=== PATIENT | male | born 1975 | race Caucasian/White ===

== ENCOUNTER 2021-04-28 10:00 | Inpatient (IN) | payer SELFPAY ==
[~2021-04-28] VITALS: Ht 177.8 cm; Wt 73.9 kg
[2021-04-28] MEDS ORDERED: IV NORMAL SALINE 1000ML BAG 1,000 ML IV ONE (10:30)
[2021-04-28] MEDS ORDERED: HYDROmorphone 2 MG/ML VIAL IVP ONE (10:30)
[2021-04-28 10:41] LABS: BASO # 0.1 x10^3/uL (0.0-0.2); BASO % 0 % (0-3); EOS # 0.1 x10^3/uL (0.0-0.7); EOS % 0 % (0-3); HEMATOCRIT 46.8 % (39.0-53.0); LYMPH # 2.3 x10^3/uL (1.0-4.8); LYMPH % 12 % (24-48); MEAN CORPUSCULAR HEMOGLOBIN 30 pg (25-35); MEAN CORPUSCULAR HGB CONC 34 g/dL (31-37); MEAN CORPUSCULAR VOLUME 87 fL (79-100); MONO # 0.9 x10^3/uL (0.0-1.1); MONO % 5 % (0-9); NEUT # 15.2 x10^3/uL (1.8-7.7); NEUT % 82 % (31-73); PLATELET COUNT 357 x10^3/uL (140-400); RED BLOOD COUNT 5.39 x10^6/uL (4.30-5.70); RED CELL DISTRIBUTION WIDTH 13.1 % (11.5-14.5); WHITE BLOOD COUNT 18.5 x10^3/uL (4.0-11.0)
--- NOTE | 2021-04-28 10:41 | PHYS DOC ---
Past Medical History Past Medical History: Asthma Past Surgical History: No Surgical History Alcohol Use: None Drug Use: None General Adult EDM: Chief Complaint: ANIMAL BITE HPI: HPI: 45-year-old male presenting after having a snakebite last night at midnight. After the bite he called EMS who gave him morphine and brought him into [facility]. He then was discharged. Since then his worsening pain and swelling of the foot. He denies any erythema. He has no information about the identity of the snake. He is not sure the shape or size of the head of the snake. He said it was a medium sized snake but is unsure how long it was. He is unsure what color was. It was in the middle the night at [facility]. His pain is moderate to severe. He has had associated swelling. He denies numbness weakness or tingling of the extremity. His pain is in the foot and in the calf. Review of systems negative for chest pain shortness of breath abdominal pain vomiting diaphoresis fevers or chills. All other review of systems negative. Heart Score: C/O Chest Pain: No Risk Factors: Risk Factors: DM, Current or recent (<one month) smoker, HTN, HLP, family history of CAD, obesity. Risk Scores: Score 0 - 3: 2.5% MACE over next 6 weeks - Discharge Home Score 4 - 6: 20.3% MACE over next 6 weeks - Admit for Clinical Observation Score 7 - 10: 72.7% MACE over next 6 weeks - Early Invasive Strategies Physical Exam: PE: Constitutional: Well developed, well nourished, patient is anxious appearing but not in distress. HENT: Normocephalic, atraumatic, bilateral external ears normal, oropharynx moist, no oral exudates, nose normal. [] Eyes: PERRLA, EOMI, conjunctiva normal, no discharge. [] Neck: Normal range of motion, no tenderness, supple, no stridor. [] Cardiovascular:Heart rate regular rhythm, no murmur [] Lungs & Thorax: Bilateral breath sounds clear to auscultation [] Abdomen: Bowel sounds normal, soft, no tenderness, no masses, no pulsatile masses. [] Skin: Warm, dry, no erythema, no rash. [] Back: No tenderness, no CVA tenderness. [] Extremities: The patient's right lower extremity has 2 small punctate wounds on the dorsum of the foot which are approximately 3 to 4 cm apart. The foot is swollen. There is a palpable pulse with 2-second cap refill. Normal motor function of the foot. Motor normal sensory function of the foot. He has tenderness in the foot and the calf. No crepitus to palpation of the foot. In particular no crepitus to palpation in the intertriginous web between the first and second phalanx. No crepitus in the calf ankle or foot. There is no erythema bullae or discoloration of the extremity. No ecchymosis petechiae or bleeding. Neurologic: Alert and oriented X 3, normal motor function, normal sensory function, no focal deficits noted. [] Psychologic: Affect normal, judgement normal, mood normal. [] EKG: EKG: [] Radiology/Procedures: Radiology/Procedures: [] Course & Med Decision Making: Course & Med Decision Making Pertinent Labs and Imaging studies reviewed. (See chart for details) [] 45-year-old male with a snakebite. Poison control called almost immediately on arrival. They faxed us their protocol. We measured the patient's extremity which was measured every 15 minutes for an hour which remained without any changes. Patient's pain was controlled with Dilaudid. IV fluids given. White blood cell count is elevated. Will give antibiotics. x-rays unremarkable. Given significant amount of swelling and pain will admit the patient for pain control and to monitor for development of compartment syndrome. Currently the patient is feeling better after the medications. On first examination and second examination the compartments of the lower extremity are soft. Neurovascularly intact on first and second examination. Second examination around 11:30 AM. I spoke with Dr. Reeder who accepts patient for admission to the hospital. I placed an orthopedic surgery consult to rule out compartment syndrome as related to the patient's significant pain. Saima Disclaimer: Saima Disclaimer: This electronic medical record was generated, in whole or in part, using a voice recognition dictation system. Departure Departure Impression: Primary Impression: Snake bite Additional Impressions: Snake bite poisoning Leg pain Disposition: ADMITTED INPATIENT [facility] Condition: STABLE JORDAN SALMERON MD Apr 28, 2021 10:41
[2021-04-28 10:42] LABS: CALCIUM 8.7 mg/dL (8.5-10.1); CREATININE 0.9 mg/dL (0.7-1.3); GFR 92.1; POTASSIUM 3.9 mmol/L (3.5-5.1)
[2021-04-28 10:45] LABS: ALBUMIN 4.2 g/dL (3.4-5.0); ALBUMIN/GLOBULIN RATIO 1.3 (1.0-1.7); TOTAL BILIRUBIN 0.5 mg/dL (0.2-1.0); TOTAL PROTEIN 7.4 g/dL (6.4-8.2)
[2021-04-28 10:47] LABS: PROTHROMBIN TIME PATIENT 12.9 SEC (11.7-14.0)
--- NOTE | 2021-04-28 11:00 | RAD ---
Right ankle 3 views, right tibia and fibula 2 views. HISTORY: Right ankle and leg pain, snakebite Right ankle 3 views were taken of of the right ankle. There is soft tissue swelling. There is no acute fracture o r osseous abnormality. Right tibia and fibula AP and lateral views were taken of the right tibia and fibula. There is soft tissue swelling of the r ight lower extremity. There is no fracture or osseous abnormality. There is no opaque foreign body. IMPRESSION: 1. Soft tissue swelling right ankle and calf. 2. No osseous abnormality in the right tibia or fibula. 3. No acute osseous abnormality at the right ankle. Electronically signed by: Jan Alegre MD (04/28/2021 10:58 AM) [id number]
--- NOTE | 2021-04-28 11:11 | RAD ---
EXAM: Right foot 3 views. HISTORY: Neck bite, swelling. COMPARISON: None. FINDINGS: Three views of the right foot are obtained. Foci of low attenuation and along the base of t he first toe are most likely fat density. No clear soft tissue gas is appreciable. There is soft tiss ue swelling along the dorsum of the forefoot. There is no fracture or radiopaque foreign body. Alignment is normal. Joint spaces are maintained. Th ere is a small plantar calcaneal spur. IMPRESSION: 1. Soft tissue swelling. No fracture or radiopaque foreign body. Electronically signed by: Ryan Murillo MD (04/28/2021 11:09 AM) [id number]
[2021-04-28] MEDS ORDERED: VANCOMYCIN 1 GM in IV NORMAL SALINE 500ML BAG 500 ML IV ONE (11:30)
[2021-04-28] MEDS ORDERED: DIPH,PERTUSS(ACELL),TET VAC/PF 0.5 ML SYRINGE. VAX IM ONE (11:45)
[2021-04-28] MEDS ORDERED: PIPERACILLIN/TAZOBACTAM 4.5 GM in IV NORMAL SALINE 100ML 100 ML IV ONE (12:00)
[2021-04-28] MEDS ORDERED: VANCOMYCIN 1.75 GM in IV NORMAL SALINE 500ML BAG 500 ML IV ONE (12:30)
[2021-04-28 12:57] LABS: HEMATOCRIT 43.5 % (39.0-53.0); HEMOGLOBIN 15.1 g/dL (13.0-17.5); RED BLOOD COUNT 5.04 x10^6/uL (4.30-5.70); RED CELL DISTRIBUTION WIDTH 12.8 % (11.5-14.5); WHITE BLOOD COUNT 17.1 x10^3/uL (4.0-11.0)
[2021-04-28 13:06] LABS: PROTHROMBIN TIME PATIENT 13.5 SEC (11.7-14.0)
[2021-04-28 13:16] VITALS: BP 112/77
[2021-04-28] MEDS ORDERED: ENOXAPARIN 40 MG/0.4 ML SYRINGE. SQ SCH (14:00)
[2021-04-28] MEDS ORDERED: KETOROLAC 30 MG/ML VIAL. IVP PRN (14:00)
[2021-04-28] MEDS ORDERED: ACETAMINOPHEN 325 MG TABLET. PO PRN (14:00)
[2021-04-28] MEDS ORDERED: clonazePAM 0.5 MG TABLET PO PRN (14:00)
[2021-04-28] MEDS ORDERED: PIPERACILLIN/TAZOBACTAM 3.375 GM in IV NORMAL SALINE 50ML 50 ML IV SCH (14:30)
--- NOTE | 2021-04-28 14:30 | PDOC1 ---
History and Physical Date of Admission Date of Admission DATE: 04/28/21 TIME: 14:02 Identification/Chief Complaint Chief Complaint Right foot pain Source Source: Chart review, Patient History of Present Illness History of Present Illness Mr Hilliard 45 yo M with no significant past medical history presenting after having a snakebite or puncture wound in his right foot on 04/27/2020 in the evening. Around 2300 contacted EMS, was given morphine in transit and brought to [facility] and states he was discharged around 0300 on antibiotics. He was not given antivenom. Since then his worsening pain and swelling of the foot. He denies any erythema. He has no information about the identity of the snake or even if it was a snake. He lives in a van by [facility] and knows that her snakes there. Pain is 10/10, and he is skeptical about pain medication. He notes he has had swelling since this occurred. He denies numbness weakness or tingling of the extremity. He notes 2 puncture wounds there approximately 8 to 9 cm apart on the medial aspect of the arch of his foot. No fevers or chills. PT 12.9, INR 1, PTT 30, fibrinogen 342, metabolic panel within normal limits WBC 18.5, Hb 16, platelets 357. Admitted for Further care Past Medical History Cardiovascular: No pertinent hx Past Surgical History Past Surgical History: No pertinent history Family History Family History: Depression Social History Smoke: 2 packs per day ALCOHOL: rare Drugs: None Current Problem List Problem List Problems Medical Problems: (1) Leg pain Status: Acute (2) Snake bite Status: Acute (3) Snake bite poisoning Status: Acute Current Medications Current Medications Current Medications Hydromorphone HCl (Dilaudid) 0.5 mg 1X ONCE IVP ; Start 04/28/21 at 10:30; Stop 04/28/21 at 10:50; Status DC Sodium Chloride 1,000 ml @ 1,000 mls/hr 1X ONCE IV Last administered on 04/28/21at 10:30; Start 04/28/21 at 10:30; Stop 04/28/21 at 11:29; Status DC Vancomycin HCl 1 gm/Sodium Chloride 500 ml @ 250 mls/hr 1X ONCE IV ; Start 04/28/21 at 11:30; Stop 04/28/21 at 11:24; Status DC Piperacillin Sod/ Tazobactam Sod 4.5 gm/Sodium Chloride 100 ml @ 200 mls/hr 1X ONCE IV Last administered on 04/28/21at 11:44; Start 04/28/21 at 12:00; Stop 04/28/21 at 12:29; Status DC Vancomycin HCl 1.75 gm/Sodium Chloride 500 ml @ 250 mls/hr 1X ONCE IV Last administered on 04/28/21at 12:19; Start 04/28/21 at 12:30; Stop 04/28/21 at 14:29 Diphtheria/ Tetanus/Acell Pertussis (ADACEL TDap SYRINGE) 0.5 ml ONCE ONCE VAX IM Last administered on 04/28/21at 12:06; Start 04/28/21 at 11:45; Stop 04/28/21 at 11:46; Status DC Active Scripts Active Reported No Known Medications Prior To Admisstion (Info) Each 1 Each 1X Allergies Allergies: Coded Allergies: No Known Drug Allergies (Unverified , 04/28/21) ROS General: YES: Fatigue, Malaise; No: Chills, Night Sweats, Appetite, Other PSYCHOLOGICAL ROS: YES: Anxiety; No: Behavioral Disorder, Concentration difficultie, Decreased libido, Depression, Disorientation, Hallucinations, Hostility, Irritablity, Memory difficulties, Mood Swings, Obsessive thoughts, Physical abuse, Sexual abuse, Sleep disturbances, Suicidal ideation, Other Eyes: No Blurry vision, No Decreased vision, No Double vision, No Dry eyes, No Excessive tearing, No Eye Pain, No Itchy Eyes, No Loss of vision, No P hotophobia, No Scotomata, No Uses contacts, No Uses glasses, No Other HEENT: No: Heacaches, Visual Changes, Hearing change, Nasal congestion, Nasal discharge, Oral lesions, Sinus pain, Sore Throat, Epistaxis, Sneezing, Snoring, Tinnitus, Vertigo, Vocal changes, Other ALLERGY AND IMMUNOLOGY: No: Hives, Insect Bite Sensitivity, Itchy/Watery Eyes, Nasal Congestion, Post Nasal Drip, Seasonal Allergies, Other Hematological and Lymphatic: No: Bleeding Problems, Blood Clots, Blood Transfusions, Brusing, Night Sweats, Pallor, Swollen Lymph Nodes, Other ENDOCRINE: No: Breast Changes, Galactorrhea, Hair Pattern Changes, Hot Flashes, Malaise/lethargy, Mood Swings, Palpitations, Polydipsia/polyuria, Skin Changes, Temperature Intolerance, Unexpected Weight Changes, Other Breast: No New/Changing Breast Lumps, No Nipple changes, No Nipple discharge, No Other Respiratory: No: Cough, Hemoptysis, Orthopnea, Pleuritic Pain, Shortness of breath, SOB with excertion, Sputum Changes, Stridor, Tachypnea, Wheezing, Other Cardiovascular: No Chest Pain, No Palpitations, No Orthopnea, No Paroxysmal Noc. Dyspnea, No Edema, No Lt Headedness, No Other Gastrointestinal: No Nausea, No Vomiting, No Abdominal Pain, No Diarrhea, No Constipation, No Melena, No Hematochezia, No Other Genitourinary: No Dysuria, No Frequency, No Incontinence, No Hematuria, No Retention, No Discharge, No Urgency, No Pain, No Flank Pain, No Other, No , No , No , No , No , No , No Musculoskeletal: No Gait Disturbance, No Joint Pain, No Joint Stiffness, No Joint Swelling, No Muscle Pain, No Muscular Weakness, No Pain In:, No Swelling In:, No Other Neurological: Yes Behavorial Changes; No Bowel/Bladder ControlChng, No Confusion, No Dizziness, No Gait Disturbance, No Headaches, No Impaired Coord/balance, No Memory Loss, No Numbness/Tingling, No Seizures, No Speech Problems, No Tremors, No Visual Changes, No Weakness, No Other Skin: Yes Rash; No Dry Skin, No Eczema, No Hair Changes, No Lumps, No Mole Changes, No Mottling, No Nail Changes, No Pruritus, No Skin Lesion Changes, No Other, No Acne Physical Exam General: Alert, Oriented X3, Cooperative, moderate distress HEENT: Atraumatic, PERRLA, EOMI, Mucous membr. moist/pink Lungs: Clear to auscultation, Normal air movement Heart: S1S2, RRR, no thrills, no rubs, no gallops, no murmurs Extremities: No clubbing, No cyanosis, Normal pulses, Other (Right calf and ankle swelling) Skin: No rashes, No breakdown, No significant lesion Neuro: Normal gait, Normal speech, Strength at 5/5 X4 ext, Normal tone, Sensation intact, Cranial nerves 3-12 NL, Reflexes 2+ Psych/Mental Status: Other (Pressured speech, yazidism perseveration, hallucinating and demon is talking to him his phone) Vitals Vitals Vital Signs Date Time Temp Pulse Resp B/P (MAP) Pulse Ox O2 Delivery O2 Flow Rate FiO2 04/28/21 13:42 Room Air 04/28/21 13:16 97.5 93 17 112/77 (89) 100 97.5 Labs Labs Laboratory Tests Test 04/28/21 10:15 04/28/21 12:44 White Blood Count 18.5 x10^3/uL (4.0-11.0) 17.1 x10^3/uL (4.0-11.0) Red Blood Count 5.39 x10^6/uL (4.30-5.70) 5.04 x10^6/uL (4.30-5.70) Hemoglobin 16.0 g/dL (13.0-17.5) 15.1 g/dL (13.0-17.5) Hematocrit 46.8 % (39.0-53.0) 43.5 % (39.0-53.0) Mean Corpuscular Volume 87 fL (79-100) 86 fL (79-100) Mean Corpuscular Hemoglobin 30 pg (25-35) 30 pg (25-35) Mean Corpuscular Hemoglobin Concent 34 g/dL (31-37) 35 g/dL (31-37) Red Cell Distribution Width 13.1 % (11.5-14.5) 12.8 % (11.5-14.5) Platelet Count 357 x10^3/uL (140-400) 286 x10^3/uL (140-400) Neutrophils (%) (Auto) 82 % (31-73) Lymphocytes (%) (Auto) 12 % (24-48) Monocytes (%) (Auto) 5 % (0-9) Eosinophils (%) (Auto) 0 % (0-3) Basophils (%) (Auto) 0 % (0-3) Neutrophils # (Auto) 15.2 x10^3/uL (1.8-7.7) Lymphocytes # (Auto) 2.3 x10^3/uL (1.0-4.8) Monocytes # (Auto) 0.9 x10^3/uL (0.0-1.1) Eosinophils # (Auto) 0.1 x10^3/uL (0.0-0.7) Basophils # (Auto) 0.1 x10^3/uL (0.0-0.2) Prothrombin Time 12.9 SEC (11.7-14.0) 13.5 SEC (11.7-14.0) Prothromb Time International Ratio 1.0 (0.8-1.1) 1.1 (0.8-1.1) Activated Partial Thromboplast Time 30 SEC (24-38) 30 SEC (24-38) Fibrinogen 342 mg/dL (200-440) 249 mg/dL (200-440) Sodium Level 140 mmol/L (136-145) Potassium Level 3.9 mmol/L (3.5-5.1) Chloride Level 101 mmol/L (98-107) Carbon Dioxide Level 30 mmol/L (21-32) Anion Gap 9 (6-14) Blood Urea Nitrogen 21 mg/dL (8-26) Creatinine 0.9 mg/dL (0.7-1.3) Estimated GFR (Cockcroft-Gault) 92.1 BUN/Creatinine Ratio 23 (6-20) Glucose Level 108 mg/dL (70-99) Calcium Level 8.7 mg/dL (8.5-10.1) Total Bilirubin 0.5 mg/dL (0.2-1.0) Aspartate Amino Transf (AST/SGOT) 20 U/L (15-37) Alanine Aminotransferase (ALT/SGPT) 23 U/L (16-63) Alkaline Phosphatase 99 U/L (46-116) Creatine Kinase 174 U/L (39-308) Total Protein 7.4 g/dL (6.4-8.2) Albumin 4.2 g/dL (3.4-5.0) Albumin/Globulin Ratio 1.3 (1.0-1.7) Laboratory Tests Test 04/28/21 10:15 04/28/21 12:44 White Blood Count 18.5 x10^3/uL (4.0-11.0) 17.1 x10^3/uL (4.0-11.0) Red Blood Count 5.39 x10^6/uL (4.30-5.70) 5.04 x10^6/uL (4.30-5.70) Hemoglobin 16.0 g/dL (13.0-17.5) 15.1 g/dL (13.0-17.5) Hematocrit 46.8 % (39.0-53.0) 43.5 % (39.0-53.0) Mean Corpuscular Volume 87 fL (79-100) 86 fL (79-100) Mean Corpuscular Hemoglobin 30 pg (25-35) 30 pg (25-35) Mean Corpuscular Hemoglobin Concent 34 g/dL (31-37) 35 g/dL (31-37) Red Cell Distribution Width 13.1 % (11.5-14.5) 12.8 % (11.5-14.5) Platelet Count 357 x10^3/uL (140-400) 286 x10^3/uL (140-400) Neutrophils (%) (Auto) 82 % (31-73) Lymphocytes (%) (Auto) 12 % (24-48) Monocytes (%) (Auto) 5 % (0-9) Eosinophils (%) (Auto) 0 % (0-3) Basophils (%) (Auto) 0 % (0-3) Neutrophils # (Auto) 15.2 x10^3/uL (1.8-7.7) Lymphocytes # (Auto) 2.3 x10^3/uL (1.0-4.8) Monocytes # (Auto) 0.9 x10^3/uL (0.0-1.1) Eosinophils # (Auto) 0.1 x10^3/uL (0.0-0.7) Basophils # (Auto) 0.1 x10^3/uL (0.0-0.2) Prothrombin Time 12.9 SEC (11.7-14.0) 13.5 SEC (11.7-14.0) Prothromb Time International Ratio 1.0 (0.8-1.1) 1.1 (0.8-1.1) Activated Partial Thromboplast Time 30 SEC (24-38) 30 SEC (24-38) Fibrinogen 342 mg/dL (200-440) 249 mg/dL (200-440) Sodium Level 140 mmol/L (136-145) Potassium Level 3.9 mmol/L (3.5-5.1) Chloride Level 101 mmol/L (98-107) Carbon Dioxide Level 30 mmol/L (21-32) Anion Gap 9 (6-14) Blood Urea Nitrogen 21 mg/dL (8-26) Creatinine 0.9 mg/dL (0.7-1.3) Estimated GFR (Cockcroft-Gault) 92.1 BUN/Creatinine Ratio 23 (6-20) Glucose Level 108 mg/dL (70-99) Calcium Level 8.7 mg/dL (8.5-10.1) Total Bilirubin 0.5 mg/dL (0.2-1.0) Aspartate Amino Transf (AST/SGOT) 20 U/L (15-37) Alanine Aminotransferase (ALT/SGPT) 23 U/L (16-63) Alkaline Phosphatase 99 U/L (46-116) Creatine Kinase 174 U/L (39-308) Total Protein 7.4 g/dL (6.4-8.2) Albumin 4.2 g/dL (3.4-5.0) Albumin/Globulin Ratio 1.3 (1.0-1.7) Images Images Right tibia and fibula radiograph: AP and lateral views were taken of the right tibia and fibula. There is soft tissue swelling of the right lower extremity. There is no fracture or osseous abnormality. There is no opaque foreign body. IMPRESSION: 1. Soft tissue swelling right ankle and calf. 2. No osseous abnormality in the right tibia or fibula. 3. No acute osseous abnormality at the right ankle. Right ankle Radiograph: Three views of the right foot are obtained. Foci of low attenuation and along the base of the first toe are most likely fat density. No clear soft tissue gas is appreciable. There is soft tissue swelling along the dorsum of the forefoot. There is no fracture or radiopaque foreign body. Alignment is normal. Joint spaces are maintained. There is a small plantar calcaneal spur. IMPRESSION: 1. Soft tissue swelling. No fracture or radiopaque foreign body. VTE Prophylaxis Ordered VTE Prophylaxis Devices: No VTE Pharmacological Prophylaxi: Yes Assessment/Plan Assessment/Plan A/P: Snake bite -after discussion with ED physician LFTs coagulations studies within normal limits no antivenom given. Will monitor and give supportive care. q 8 hour coag studies. No significant neurologic sequela. Extremity elevated. Encounter had, rattlesnake and cottonmouth are not diagnosed as very unclear what snake this was spent greater than 12 hours since the bite site, so indicated continue to observe for an additional 12 hours Cellulitis right lower leg -vancomycin and Zosyn. Elevate extremity. Orthopedic surgery consulted for concern for swelling no evidence of compartment syndrome at this time. Neurovascularly intact Smoker -patient continues to leave the hospital I advised him this would be leaving his medical advice. Offered nicotine gum he is amenable to this. 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 He knows he has previously been given "medications" for this in [place] and notes his daughter has been psychiatrically institutionalized previously but he denies this. He has taken Klonopin for anxiety previously FEN - General diet PPX - lovenox FULL CODE Dispo - inpatient Justifications for Admission Other Justification ARELIS KINGSTON MD Apr 28, 2021 14:30
[2021-04-28] MEDS ORDERED: MORPHINE SULFATE 2 MG/ML VIAL. IV PRN (14:45)
[2021-04-28 15:00] VITALS: BP 121/79
--- NOTE | 2021-04-28 15:54 | NUR ---
Wound Care Wound care consult for snake bite to LLE. Pt has 2 scabs on left dorsal foot that are not fluctuant or draining. LLE is reddened and swollen. Wound care will sign off at this time as pt does not have any open wounds to treat. Please reconsult if new wounds develop or pt has open I&D.
[2021-04-28] MEDS: VANCOMYCIN PER PHARMACY MC PRN (16:02)
--- NOTE | 2021-04-28 16:28 | NUR ---
Pharmacy Vancomycin Dosing Note S:Consulted to monitor and dose vancomycin started 04/28/21. O:TED WHITTAKER is a 45 year old M with Cellulitis Height: 5 feet, 10 inches Weight: 74.3 kg [place] Body Weight: 73.00 Adjusted Body Weight: 73.52 Dosing Weight: Other Antibiotics: ZOSYN LABS: Last BUN: 21 Last Creatinine: 0.9 Creatinine Clearance: >100 mL/min Last WBC: 17.1 Last Procalcitonin: Tmax (past 24 hours): 98.4 Microbiology: - Last dose given 04/28/21 at 1219 Vancomycin Dosing: Loading Dose: 1750 mg x1 Dosing Weight: Target Trough: 10-20 A: Based on: WEIGHT AND RENAL FUNCTION P: 1. BEGIN Vancomycin 1000 mg IV q12h 2. Follow up Trough level on 04/29/21 at 2230 3. Pharmacy will continue to monitor, follow and adjust therapy as needed. Sirena Maxwell RPH, 04/28/21 [id number]
--- NOTE | 2021-04-28 18:10 | NUR ---
Wound measurements: 1730 R foot arch: 10.25in R ankle: 12.5in R calf: 15in Addendum: 04/28/21 at 1905 by MIKAEL HELM LPN LPN Measurements in cm R foot arch: 26cm R ankle: 31.75cm R calf: 38.1cm
[2021-04-28] MEDS: PIPERACILLIN/TAZOBACTAM 3.375 GM in IV NORMAL SALINE 50ML 50 ML IV SCH (18:49)
[2021-04-28 19:00] VITALS: BP 116/77
--- NOTE | 2021-04-28 20:00 | NUR ---
RLE Wound Measurements 2000: Arch: 26cm Calf:38cm Ankle:30.75cm
[2021-04-28] MEDS: PSYLLIUM HUSK (SUGAR FREE) 1 PKT PACKET PO SCH (21:00)
[2021-04-28] MEDS: ENOXAPARIN 40 MG/0.4 ML SYRINGE. SQ SCH (22:00)
[2021-04-28] MEDS: VANCOMYCIN 1 GM in IV NORMAL SALINE 250ML 250 ML IV SCH (22:41)
[2021-04-28 23:00] VITALS: BP 119/80
--- NOTE | 2021-04-29 | NUR ---
RLE Wound Measurements 2000: Arch: 26cm Calf:38cm Ankle:29cm Addendum: 04/29/21 at 0548 by MARI MCGINNIS RN RLE Wound Measurements 0000: Arch: 26cm Calf:38cm Ankle:29cm
[2021-04-29] MEDS: PIPERACILLIN/TAZOBACTAM 3.375 GM in IV NORMAL SALINE 50ML 50 ML IV SCH ×4 (00:50→17:32)
[2021-04-29 00:57] LABS: PROTHROMBIN TIME PATIENT 29.5 SEC (11.7-14.0)
[2021-04-29 01:02] LABS: D-DIMER 1.34 ug/mlFEU (0.00-0.50)
[2021-04-29 03:00] VITALS: BP 107/66
--- NOTE | 2021-04-29 04:00 | NUR ---
RLE Wound Measurements 0400: no changes noted from previous measurement Arch: 26cm Calf:38cm Ankle:29cm
[2021-04-29 05:06] LABS: BASO # 0.1 x10^3/uL (0.0-0.2); BASO % 1 % (0-3); EOS # 0.3 x10^3/uL (0.0-0.7); EOS % 2 % (0-3); HEMATOCRIT 52.4 % (39.0-53.0); HEMOGLOBIN 17.7 g/dL (13.0-17.5); LYMPH # 2.3 x10^3/uL (1.0-4.8); LYMPH % 14 % (24-48); MEAN CORPUSCULAR HEMOGLOBIN 30 pg (25-35); MEAN CORPUSCULAR HGB CONC 34 g/dL (31-37); MEAN CORPUSCULAR VOLUME 88 fL (79-100); MONO # 1.1 x10^3/uL (0.0-1.1); MONO % 7 % (0-9); NEUT # 12.4 x10^3/uL (1.8-7.7); NEUT % 77 % (31-73); PLATELET COUNT 222 x10^3/uL (140-400); RED BLOOD COUNT 5.94 x10^6/uL (4.30-5.70); RED CELL DISTRIBUTION WIDTH 13.3 % (11.5-14.5); WHITE BLOOD COUNT 16.2 x10^3/uL (4.0-11.0)
[2021-04-29 05:43] LABS: CALCIUM 7.8 mg/dL (8.5-10.1); CREATININE 0.9 mg/dL (0.7-1.3); GFR 92.1; POTASSIUM 3.9 mmol/L (3.5-5.1)
[2021-04-29 06:31] LABS: D-DIMER 1.76 ug/mlFEU (0.00-0.50)
[2021-04-29 07:00] VITALS: BP 107/70
--- NOTE | 2021-04-29 07:43 | PDOC ---
PROGRESS NOTES Date of Service DATE: 04/29/21 TIME: 07:39 Subjective Subjective Problems overnight: Consult dictated yesterday, unsure why it is not on the chart yet. Adrián says overall the right leg feels better Objective Vital Signs Vital Signs Date Time Temp Pulse Resp B/P (MAP) Pulse Ox O2 Delivery O2 Flow Rate FiO2 04/29/21 03:00 98.2 18 107/66 (80) 98 Room Air 98.2 04/28/21 23:00 94 Physical Exam Right foot swollen a bit more than the right calf. Both have soft compartments and he is able to readily move his ankle up and down actively with minimal pain. Foot remains mildly tender but again can wiggle his toes there is no tenderness over the tendon sheaths no spreading redness or redness really of any kind. Does have the appearance of 2 scabs on the top of his dorsal lateral foot but no fluctuance in the area just diffuse tenderness all around distal pulses and sensation are intact Labs Laboratory Tests Test 04/28/21 10:15 04/28/21 12:44 04/29/21 00:36 04/29/21 04:40 White Blood Count 18.5 x10^3/uL (4.0-11.0) 17.1 x10^3/uL (4.0-11.0) 16.2 x10^3/uL (4.0-11.0) Red Blood Count 5.39 x10^6/uL (4.30-5.70) 5.04 x10^6/uL (4.30-5.70) 5.94 x10^6/uL (4.30-5.70) Hemoglobin 16.0 g/dL (13.0-17.5) 15.1 g/dL (13.0-17.5) 17.7 g/dL (13.0-17.5) Hematocrit 46.8 % (39.0-53.0) 43.5 % (39.0-53.0) 52.4 % (39.0-53.0) Mean Corpuscular Volume 87 fL (79-100) 86 fL (79-100) 88 fL (79-100) Mean Corpuscular Hemoglobin 30 pg (25-35) 30 pg (25-35) 30 pg (25-35) Mean Corpuscular Hemoglobin Concent 34 g/dL (31-37) 35 g/dL (31-37) 34 g/dL (31-37) Red Cell Distribution Width 13.1 % (11.5-14.5) 12.8 % (11.5-14.5) 13.3 % (11.5-14.5) Platelet Count 357 x10^3/uL (140-400) 286 x10^3/uL (140-400) 291 x10^3/uL (140-400) 222 x10^3/uL (140-400) Neutrophils (%) (Auto) 82 % (31-73) 77 % (31-73) Lymphocytes (%) (Auto) 12 % (24-48) 14 % (24-48) Monocytes (%) (Auto) 5 % (0-9) 7 % (0-9) Eosinophils (%) (Auto) 0 % (0-3) 2 % (0-3) Basophils (%) (Auto) 0 % (0-3) 1 % (0-3) Neutrophils # (Auto) 15.2 x10^3/uL (1.8-7.7) 12.4 x10^3/uL (1.8-7.7) Lymphocytes # (Auto) 2.3 x10^3/uL (1.0-4.8) 2.3 x10^3/uL (1.0-4.8) Monocytes # (Auto) 0.9 x10^3/uL (0.0-1.1) 1.1 x10^3/uL (0.0-1.1) Eosinophils # (Auto) 0.1 x10^3/uL (0.0-0.7) 0.3 x10^3/uL (0.0-0.7) Basophils # (Auto) 0.1 x10^3/uL (0.0-0.2) 0.1 x10^3/uL (0.0-0.2) Prothrombin Time 12.9 SEC (11.7-14.0) 13.5 SEC (11.7-14.0) 29.5 SEC (11.7-14.0) 13.0 SEC (11.7-14.0) Prothromb Time International Ratio 1.0 (0.8-1.1) 1.1 (0.8-1.1) 2.8 (0.8-1.1) 1.0 (0.8-1.1) Activated Partial Thromboplast Time 30 SEC (24-38) 30 SEC (24-38) 50 SEC (24-38) 25 SEC (24-38) Fibrinogen 342 mg/dL (200-440) 249 mg/dL (200-440) 279 mg/dL (200-440) 366 mg/dL (200-440) Sodium Level 140 mmol/L (136-145) Potassium Level 3.9 mmol/L (3.5-5.1) Chloride Level 101 mmol/L (98-107) Carbon Dioxide Level 30 mmol/L (21-32) Anion Gap 9 (6-14) Blood Urea Nitrogen 21 mg/dL (8-26) Creatinine 0.9 mg/dL (0.7-1.3) Estimated GFR (Cockcroft-Gault) 92.1 BUN/Creatinine Ratio 23 (6-20) Glucose Level 108 mg/dL (70-99) Calcium Level 8.7 mg/dL (8.5-10.1) Total Bilirubin 0.5 mg/dL (0.2-1.0) Aspartate Amino Transf (AST/SGOT) 20 U/L (15-37) Alanine Aminotransferase (ALT/SGPT) 23 U/L (16-63) Alkaline Phosphatase 99 U/L (46-116) Creatine Kinase 174 U/L (39-308) Total Protein 7.4 g/dL (6.4-8.2) Albumin 4.2 g/dL (3.4-5.0) Albumin/Globulin Ratio 1.3 (1.0-1.7) D-Dimer (Luciana) 1.34 ug/mlFEU (0.00-0.50) 1.76 ug/mlFEU (0.00-0.50) Test 04/29/21 04:46 Sodium Level 141 mmol/L (136-145) Potassium Level 3.9 mmol/L (3.5-5.1) Chloride Level 107 mmol/L (98-107) Carbon Dioxide Level 23 mmol/L (21-32) Anion Gap 11 (6-14) Blood Urea Nitrogen 15 mg/dL (8-26) Creatinine 0.9 mg/dL (0.7-1.3) Estimated GFR (Cockcroft-Gault) 92.1 Glucose Level 115 mg/dL (70-99) Calcium Level 7.8 mg/dL (8.5-10.1) Laboratory Tests Test 04/28/21 10:15 04/28/21 12:44 04/29/21 00:36 04/29/21 04:40 White Blood Count 18.5 x10^3/uL (4.0-11.0) 17.1 x10^3/uL (4.0-11.0) 16.2 x10^3/uL (4.0-11.0) Red Blood Count 5.39 x10^6/uL (4.30-5.70) 5.04 x10^6/uL (4.30-5.70) 5.94 x10^6/uL (4.30-5.70) Hemoglobin 16.0 g/dL (13.0-17.5) 15.1 g/dL (13.0-17.5) 17.7 g/dL (13.0-17.5) Hematocrit 46.8 % (39.0-53.0) 43.5 % (39.0-53.0) 52.4 % (39.0-53.0) Mean Corpuscular Volume 87 fL (79-100) 86 fL (79-100) 88 fL (79-100) Mean Corpuscular Hemoglobin 30 pg (25-35) 30 pg (25-35) 30 pg (25-35) Mean Corpuscular Hemoglobin Concent 34 g/dL (31-37) 35 g/dL (31-37) 34 g/dL (31-37) Red Cell Distribution Width 13.1 % (11.5-14.5) 12.8 % (11.5-14.5) 13.3 % (11.5-14.5) Platelet Count 357 x10^3/uL (140-400) 286 x10^3/uL (140-400) 291 x10^3/uL (140-400) 222 x10^3/uL (140-400) Neutrophils (%) (Auto) 82 % (31-73) 77 % (31-73) Lymphocytes (%) (Auto) 12 % (24-48) 14 % (24-48) Monocytes (%) (Auto) 5 % (0-9) 7 % (0-9) Eosinophils (%) (Auto) 0 % (0-3) 2 % (0-3) Basophils (%) (Auto) 0 % (0-3) 1 % (0-3) Neutrophils # (Auto) 15.2 x10^3/uL (1.8-7.7) 12.4 x10^3/uL (1.8-7.7) Lymphocytes # (Auto) 2.3 x10^3/uL (1.0-4.8) 2.3 x10^3/uL (1.0-4.8) Monocytes # (Auto) 0.9 x10^3/uL (0.0-1.1) 1.1 x10^3/uL (0.0-1.1) Eosinophils # (Auto) 0.1 x10^3/uL (0.0-0.7) 0.3 x10^3/uL (0.0-0.7) Basophils # (Auto) 0.1 x10^3/uL (0.0-0.2) 0.1 x10^3/uL (0.0-0.2) Prothrombin Time 12.9 SEC (11.7-14.0) 13.5 SEC (11.7-14.0) 29.5 SEC (11.7-14.0) 13.0 SEC (11.7-14.0) Prothromb Time International Ratio 1.0 (0.8-1.1) 1.1 (0.8-1.1) 2.8 (0.8-1.1) 1.0 (0.8-1.1) Activated Partial Thromboplast Time 30 SEC (24-38) 30 SEC (24-38) 50 SEC (24-38) 25 SEC (24-38) Fibrinogen 342 mg/dL (200-440) 249 mg/dL (200-440) 279 mg/dL (200-440) 366 mg/dL (200-440) Sodium Level 140 mmol/L (136-145) Potassium Level 3.9 mmol/L (3.5-5.1) Chloride Level 101 mmol/L (98-107) Carbon Dioxide Level 30 mmol/L (21-32) Anion Gap 9 (6-14) Blood Urea Nitrogen 21 mg/dL (8-26) Creatinine 0.9 mg/dL (0.7-1.3) Estimated GFR (Cockcroft-Gault) 92.1 BUN/Creatinine Ratio 23 (6-20) Glucose Level 108 mg/dL (70-99) Calcium Level 8.7 mg/dL (8.5-10.1) Total Bilirubin 0.5 mg/dL (0.2-1.0) Aspartate Amino Transf (AST/SGOT) 20 U/L (15-37) Alanine Aminotransferase (ALT/SGPT) 23 U/L (16-63) Alkaline Phosphatase 99 U/L (46-116) Creatine Kinase 174 U/L (39-308) Total Protein 7.4 g/dL (6.4-8.2) Albumin 4.2 g/dL (3.4-5.0) Albumin/Globulin Ratio 1.3 (1.0-1.7) D-Dimer (Luciana) 1.34 ug/mlFEU (0.00-0.50) 1.76 ug/mlFEU (0.00-0.50) Test 04/29/21 04:46 Sodium Level 141 mmol/L (136-145) Potassium Level 3.9 mmol/L (3.5-5.1) Chloride Level 107 mmol/L (98-107) Carbon Dioxide Level 23 mmol/L (21-32) Anion Gap 11 (6-14) Blood Urea Nitrogen 15 mg/dL (8-26) Creatinine 0.9 mg/dL (0.7-1.3) Estimated GFR (Cockcroft-Gault) 92.1 Glucose Level 115 mg/dL (70-99) Calcium Level 7.8 mg/dL (8.5-10.1) Assessment Assessment Right leg and foot swelling resolving Plan Plan of Care Overall he appears improved from yesterday. Right foot remains swollen a bit more than the calf compartments are soft throughout, no sign of compartment syndrome or spreading infection Recommend continued symptomatic treatment with elevation when he is not ambulating as well as some ongoing antibiotic treatment for the apparent puncture wound reported as a "snake bite" Will continue to observe, no indication for surgical intervention presently Justicifation of Admission Dx: Justifications for Admission: Justification of Admission Dx: N/A DENIZ,MAN J MD Apr 29, 2021 07:43
--- NOTE | 2021-04-29 08:00 | NUR ---
RLE Measurements 0800 R Arch: 26cm R Ankle: 29cm R Calf: 37cm
[2021-04-29] MEDS: VANCOMYCIN 1 GM in IV NORMAL SALINE 250ML 250 ML IV SCH ×2 (09:51→23:22)
--- NOTE | 2021-04-29 10:13 | CONS ---
DATE OF CONSULTATION: 04/28/2021 ORTHOPEDIC CONSULTATION REQUESTING PHYSICIAN: Dr. Jeff Black. REASON FOR CONSULTATION: Right leg swelling, concern for potential compartment syndrome. HISTORY OF PRESENT ILLNESS: The patient is a 45-year-old male who had apparently been evaluated at [facility] for a snake bite that occurred at midnight last night. He had called EMS and brought him in to [facility] and apparently was discharged. Since then, he has had worsening pain and swelling in his right leg and foot and was admitted due to his pain and swelling. PAST MEDICAL HISTORY: He indicates a past medical history of asthma. PAST SURGICAL HISTORY: No surgical history. SOCIAL HISTORY[place] happened at [facility]. He is a smoker, 2 packs per day. FAMILY HISTORY: Depression. MEDICATIONS: List is reviewed. He is receiving Zosyn in the hospital and vancomycin as well as received a Tdap vaccine. ALLERGIES: He has no known drug allergies. REVIEW OF SYSTEMS: Significant for the severe pain, swelling just feeling poorly and anxious. Denies any fever, chills, night sweats, chest pain, shortness of breath or any joint or other extremity pain. PHYSICAL EXAMINATION: His compartments are soft both in the foot and then all 4 compartments of the leg. He is able to wiggle his toes and wiggle his ankle up and down with some discomfort, but really at this point has moderate pain to passive or active range of motion in the calf, ankle and foot area on the right, normal examination of the contralateral left leg, bilateral hips and knees. Examination of upper extremities reveals no evidence of trauma, joint swelling. He does have tattoos all over arms and upper body. Some type of penetrating trauma to the right foot reported as a snake bite. The areas of his puncture wound on the lateral dorsal aspect of the foot, however, are quite far apart and I am not sure really consistent with a snake bite. He also did not get any antivenom or other treatment aside from apparently some initial antibiotics from the [facility] Emergency Department and really did not even get to fill any antibiotics from there as he came into the Emergency Department today and states that ever since he has been in the hospital and kept his leg elevated and on his current antibiotic regimen, he has had much less pain and is in fact really resting comfortably. I went over with him that on examination, I do not really see that he has signs of compartment syndrome. He indicates that his pain is much less severe and is resolving. I really do not notice any redness or streaking of the leg. Likewise, there is no tenderness over the tendon sheaths in the joint whatsoever and no evidence of any septic arthritis or tenosynovitis noted. Compartments are soft and he has relatively [id number] pain on active or passive range of motion, all of which really argue against any type of concern for compartment syndrome. IMPRESSION: Some penetrating injury to his foot and some probable cellulitis, swelling and symptoms resolving with antibiotics and elevation. TREATMENT PLAN: I think he should have continued observation at this point as I do not see any evidence of spreading infection or compartment syndrome. He can continue elevation and continue medical treatment with antibiotics as well as observation and I will follow along from an orthopedic standpoint if his condition worsens. ANIYAH DR: Sravanthi TID: [id number]
[2021-04-29 11:00] VITALS: BP 110/76
--- NOTE | 2021-04-29 11:05 | NUR ---
SW following. Discussed with RN, pt lives [place] his [place] by the [place], room air, regular diet, gets around fine. No surgery needed. Med Assist following for self pay status. SW will continue to follow.
--- NOTE | 2021-04-29 12:00 | NUR ---
RLE measurements: R arch: 26.5cm R ankle: 29.5 R calf: 37.5
--- NOTE | 2021-04-29 12:52 | PDOC ---
[facility] PROGRESS NOTE Date of Service DOS: DATE: 04/29/21 TIME: 12:43 Chief Complaint Chief Complaint A/P: Snake bite -after discussion with ED physician LFTs coagulations studies within normal limits no antivenom given. Will monitor and give supportive care. q 8 hour coag studies completed. No significant neurologic sequela. Extremity elevated. Rattlesnake and cottonmouth are in the region, but it is unclear what snake this was. He has spent greater than 12 hours since the bite site, so indicated continue to observe for an additional 12 hours Cellulitis right lower leg -vancomycin and Zosyn. Elevate extremity. Orthopedic surgery consulted for concern for swelling no evidence of compartment syndrome at this time. Neurovascularly intact Smoker -patient continues to leave the hospital I advised him this would be leaving his medical advice. Offered nicotine gum he is amenable to this. 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 He knows he has previously been given "medications" for this in [place] and notes his daughter has been psychiatrically institutionalized previously but he denies this. He has taken Klonopin for anxiety previously FEN - General diet PPX - lovenox FULL CODE Dispo - inpatient History of Present Illness History of Present Illness Mr Hilliard 45 yo M with no significant past medical history presenting after having a snakebite or puncture wound in his right foot on 04/27/2020 in the evening. Around 2300 contacted EMS, was given morphine in transit and brought to [facility] and states he was discharged around 0300 on antibiotics. He was not given antivenom. Since then his worsening pain and swelling of the foot. He denies any erythema. He has no information about the identity of the snake or even if it was a snake. He lives in a van by [facility] and knows that her snakes there. Pain is 10/10, and he is skeptical about pain medication. He notes he has had swelling since this occurred. He denies numbness weakness or tingling of the extremity. He notes 2 puncture wounds there approximately 8 to 9 cm apart on the medial aspect of the arch of his foot. No fevers or chills. PT 12.9, INR 1, PTT 30, fibrinogen 342, metabolic panel within normal limits WBC 18.5, Hb 16, platelets 357. Admitted for Further care. Afebrile. Redness about the same. Pain about the same. No numbness or tingling no necrosis. Elevated D-dimer. He is refusing Lovenox which was ordered after coagulation studies return normal. Plan for venous doppler today. Vitals/I&O Vitals/I&O: Vital Signs Date Time Temp Pulse Resp B/P (MAP) Pulse Ox O2 Delivery O2 Flow Rate FiO2 04/29/21 11:00 98.7 94 16 110/76 (87) 98 Room Air 98.7 I & O 04/28/21 04/28/21 04/29/21 15:00 23:00 07:00 Intake Total 2130 ml 640 ml Output Total 0 ml 0 ml Balance 2130 ml 640 ml Physical Exam General: Alert, Oriented X3, Cooperative, moderate distress Extremities: No clubbing, No cyanosis, Normal pulses, Other (Right calf and ankle swelling) Skin: No rashes, No breakdown, No significant lesion Labs Labs: Laboratory Tests Test 04/28/21 12:44 04/29/21 00:36 04/29/21 04:40 04/29/21 04:46 White Blood Count 17.1 x10^3/uL (4.0-11.0) 16.2 x10^3/uL (4.0-11.0) Red Blood Count 5.04 x10^6/uL (4.30-5.70) 5.94 x10^6/uL (4.30-5.70) Hemoglobin 15.1 g/dL (13.0-17.5) 17.7 g/dL (13.0-17.5) Hematocrit 43.5 % (39.0-53.0) 52.4 % (39.0-53.0) Mean Corpuscular Volume 86 fL (79-100) 88 fL (79-100) Mean Corpuscular Hemoglobin 30 pg (25-35) 30 pg (25-35) Mean Corpuscular Hemoglobin Concent 35 g/dL (31-37) 34 g/dL (31-37) Red Cell Distribution Width 12.8 % (11.5-14.5) 13.3 % (11.5-14.5) Platelet Count 286 x10^3/uL (140-400) 291 x10^3/uL (140-400) 222 x10^3/uL (140-400) Prothrombin Time 13.5 SEC (11.7-14.0) 29.5 SEC (11.7-14.0) 13.0 SEC (11.7-14.0) Prothromb Time International Ratio 1.1 (0.8-1.1) 2.8 (0.8-1.1) 1.0 (0.8-1.1) Activated Partial Thromboplast Time 30 SEC (24-38) 50 SEC (24-38) 25 SEC (24-38) Fibrinogen 249 mg/dL (200-440) 279 mg/dL (200-440) 366 mg/dL (200-440) D-Dimer (Luciana) 1.34 ug/mlFEU (0.00-0.50) 1.76 ug/mlFEU (0.00-0.50) Neutrophils (%) (Auto) 77 % (31-73) Lymphocytes (%) (Auto) 14 % (24-48) Monocytes (%) (Auto) 7 % (0-9) Eosinophils (%) (Auto) 2 % (0-3) Basophils (%) (Auto) 1 % (0-3) Neutrophils # (Auto) 12.4 x10^3/uL (1.8-7.7) Lymphocytes # (Auto) 2.3 x10^3/uL (1.0-4.8) Monocytes # (Auto) 1.1 x10^3/uL (0.0-1.1) Eosinophils # (Auto) 0.3 x10^3/uL (0.0-0.7) Basophils # (Auto) 0.1 x10^3/uL (0.0-0.2) Sodium Level 141 mmol/L (136-145) Potassium Level 3.9 mmol/L (3.5-5.1) Chloride Level 107 mmol/L (98-107) Carbon Dioxide Level 23 mmol/L (21-32) Anion Gap 11 (6-14) Blood Urea Nitrogen 15 mg/dL (8-26) Creatinine 0.9 mg/dL (0.7-1.3) Estimated GFR (Cockcroft-Gault) 92.1 Glucose Level 115 mg/dL (70-99) Calcium Level 7.8 mg/dL (8.5-10.1) Assessment and Plan Assessmemt and Plan Problems Medical Problems: (1) Leg pain Status: Acute (2) Snake bite Status: Acute (3) Snake bite poisoning Status: Acute Comment Review of Relevant I have reviewed the following items althea (where applicable) has been applied. Medications: Current Medications Medications (Trade) Dose Ordered Sig/Leon Route PRN Reason Start Time Stop Time Status Last Admin Dose Admin Vancomycin HCl (Vanco Per Pharmacy) 1 each PRN DAILY PRN MC SEE COMMENTS 04/28/21 14:00 04/28/21 16:02 Piperacillin Sod/ Tazobactam Sod 3.375 gm/Sodium Chloride 50 ml @ 100 mls/hr Q6HRS IV 04/28/21 18:00 04/29/21 12:37 Vancomycin HCl 1 gm/Sodium Chloride 250 ml @ 250 mls/hr Q12H IV 04/28/21 23:00 04/29/21 09:51 Justifications for Admission Other Justification ARELIS KINGSTON MD Apr 29, 2021 12:52
[2021-04-29] MEDS: VANCOMYCIN PER PHARMACY MC PRN ×2 (14:12→23:23)
[2021-04-29 15:00] VITALS: BP 113/78
--- NOTE | 2021-04-29 16:00 | NUR ---
RLE measurements: R foot: 26cm R ankle: 28cm R calf: 37.5cm
[2021-04-29 19:25] VITALS: BP 112/74
--- NOTE | 2021-04-29 20:00 | NUR ---
RLE Wound Measurements 2000: Arch: 26 cm Ankle:28 cm Calf:38 cm
--- NOTE | 2021-04-29 20:57 | RAD ---
EXAMINATION: RIGHT LOWER EXTREMITY - UNILATERAL VENOUS DOPPLER. Technique: Ultrasound evaluation of the right lower extremity was performed from the groin to the upp er calf with cooper scale, spectral and color doppler evaluation. Indication: Leg swelling Comparison: None Findings: There is normal venous flow and compressibility of right common femoral vein, femoral vein, popliteal vein, and visualized proximal calf veins. Impression: No evidence for deep vein thrombosis of right lower extremity from the level of the calf veins to the groins. Electronically signed by: Dereje Sawyer MD (04/29/2021 8:54 PM) MAXINE
[2021-04-29] MEDS: PSYLLIUM HUSK (SUGAR FREE) 1 PKT PACKET PO SCH (21:00)
[2021-04-29] MEDS: ENOXAPARIN 40 MG/0.4 ML SYRINGE. SQ SCH (22:00)
[2021-04-29 22:58] VITALS: BP 96/60
[2021-04-29 23:02] LABS: VANC TR 6.7 mcg/mL (10.0-20.0)
--- NOTE | 2021-04-29 23:24 | NUR ---
Pharmacy Vancomycin Dosing Note S:Consulted to monitor and dose vancomycin started 04/28/21. O:TED WHITTAKER is a 45 year old M with Cellulitis . Height: 5 feet, 10 inches Weight: 73.883944 kg [place] Body Weight: 66.10 Adjusted Body Weight: 69.22 Dosing Weight: Actual Other Antibiotics: ZOSYN LABS: Last BUN: 15 Last Creatinine: 0.9 Creatinine Clearance: >100 mL/min Last WBC: 16.2 Last Procalcitonin: Tmax (past 24 hours): 98.7 Microbiology: - I/O: 2770/0 Drug Levels: Last Trough level: 6.7 on 04/29/21 at 2230 Last dose given 04/29/21 at 0951 Vancomycin Dosing: Loading Dose: 1750 mg x1 Dosing Weight: Actual Target Trough: 10-20 A: Based on: LOW VANCOMYCIN TROUGH, P: 1. CHANGE REGIMEN TO Vancomycin 1000 mg IV q8h 2. Follow up Trough level on 04/30/21 at 2300 3. Pharmacy will continue to monitor, follow and adjust therapy as needed. [facility] ED, 04/29/21 1001
--- NOTE | 2021-04-30 | NUR ---
RLE Wound Measurements 0000: Arch: 26 cm Ankle:28 cm Calf: 38 cm
[2021-04-30] MEDS: PIPERACILLIN/TAZOBACTAM 3.375 GM in IV NORMAL SALINE 50ML 50 ML IV SCH ×4 (00:54→17:43)
[2021-04-30 03:07] VITALS: BP 104/57
[2021-04-30] MEDS: VANCOMYCIN 1 GM in IV NORMAL SALINE 250ML 250 ML IV SCH ×3 (06:13→23:38)
[2021-04-30 07:00] VITALS: BP 109/77
--- NOTE | 2021-04-30 07:08 | PDOC ---
PROGRESS NOTES Date of Service DATE: 04/30/21 TIME: 07:03 Subjective Subjective Problems overnight: No new complaints he notes that pain is about the same as yesterday, really does not like to take pain medication Objective Vital Signs Vital Signs Date Time Temp Pulse Resp B/P (MAP) Pulse Ox O2 Delivery O2 Flow Rate FiO2 04/30/21 03:07 98.4 72 18 104/57 (73) 97 Room Air 98.4 Physical Exam On examination he continues to have swelling in the right foot mild redness really unchanged from his previous examination he is tender over the foot especially on palpation a little less so over the calf compartments are soft throughout and he is able to plantar and dorsiflex his ankle with mild discomfort, really more tender with palpation over the foot more so than the calf Labs Laboratory Tests Test 04/28/21 10:15 04/28/21 12:44 04/29/21 00:36 04/29/21 04:40 White Blood Count 18.5 x10^3/uL (4.0-11.0) 17.1 x10^3/uL (4.0-11.0) 16.2 x10^3/uL (4.0-11.0) Red Blood Count 5.39 x10^6/uL (4.30-5.70) 5.04 x10^6/uL (4.30-5.70) 5.94 x10^6/uL (4.30-5.70) Hemoglobin 16.0 g/dL (13.0-17.5) 15.1 g/dL (13.0-17.5) 17.7 g/dL (13.0-17.5) Hematocrit 46.8 % (39.0-53.0) 43.5 % (39.0-53.0) 52.4 % (39.0-53.0) Mean Corpuscular Volume 87 fL (79-100) 86 fL (79-100) 88 fL (79-100) Mean Corpuscular Hemoglobin 30 pg (25-35) 30 pg (25-35) 30 pg (25-35) Mean Corpuscular Hemoglobin Concent 34 g/dL (31-37) 35 g/dL (31-37) 34 g/dL (31-37) Red Cell Distribution Width 13.1 % (11.5-14.5) 12.8 % (11.5-14.5) 13.3 % (11.5-14.5) Platelet Count 357 x10^3/uL (140-400) 286 x10^3/uL (140-400) 291 x10^3/uL (140-400) 222 x10^3/uL (140-400) Neutrophils (%) (Auto) 82 % (31-73) 77 % (31-73) Lymphocytes (%) (Auto) 12 % (24-48) 14 % (24-48) Monocytes (%) (Auto) 5 % (0-9) 7 % (0-9) Eosinophils (%) (Auto) 0 % (0-3) 2 % (0-3) Basophils (%) (Auto) 0 % (0-3) 1 % (0-3) Neutrophils # (Auto) 15.2 x10^3/uL (1.8-7.7) 12.4 x10^3/uL (1.8-7.7) Lymphocytes # (Auto) 2.3 x10^3/uL (1.0-4.8) 2.3 x10^3/uL (1.0-4.8) Monocytes # (Auto) 0.9 x10^3/uL (0.0-1.1) 1.1 x10^3/uL (0.0-1.1) Eosinophils # (Auto) 0.1 x10^3/uL (0.0-0.7) 0.3 x10^3/uL (0.0-0.7) Basophils # (Auto) 0.1 x10^3/uL (0.0-0.2) 0.1 x10^3/uL (0.0-0.2) Prothrombin Time 12.9 SEC (11.7-14.0) 13.5 SEC (11.7-14.0) 29.5 SEC (11.7-14.0) 13.0 SEC (11.7-14.0) Prothromb Time International Ratio 1.0 (0.8-1.1) 1.1 (0.8-1.1) 2.8 (0.8-1.1) 1.0 (0.8-1.1) Activated Partial Thromboplast Time 30 SEC (24-38) 30 SEC (24-38) 50 SEC (24-38) 25 SEC (24-38) Fibrinogen 342 mg/dL (200-440) 249 mg/dL (200-440) 279 mg/dL (200-440) 366 mg/dL (200-440) Sodium Level 140 mmol/L (136-145) Potassium Level 3.9 mmol/L (3.5-5.1) Chloride Level 101 mmol/L (98-107) Carbon Dioxide Level 30 mmol/L (21-32) Anion Gap 9 (6-14) Blood Urea Nitrogen 21 mg/dL (8-26) Creatinine 0.9 mg/dL (0.7-1.3) Estimated GFR (Cockcroft-Gault) 92.1 BUN/Creatinine Ratio 23 (6-20) Glucose Level 108 mg/dL (70-99) Calcium Level 8.7 mg/dL (8.5-10.1) Total Bilirubin 0.5 mg/dL (0.2-1.0) Aspartate Amino Transf (AST/SGOT) 20 U/L (15-37) Alanine Aminotransferase (ALT/SGPT) 23 U/L (16-63) Alkaline Phosphatase 99 U/L (46-116) Creatine Kinase 174 U/L (39-308) Total Protein 7.4 g/dL (6.4-8.2) Albumin 4.2 g/dL (3.4-5.0) Albumin/Globulin Ratio 1.3 (1.0-1.7) D-Dimer (Luciana) 1.34 ug/mlFEU (0.00-0.50) 1.76 ug/mlFEU (0.00-0.50) Test 04/29/21 04:46 04/29/21 22:30 Sodium Level 141 mmol/L (136-145) Potassium Level 3.9 mmol/L (3.5-5.1) Chloride Level 107 mmol/L (98-107) Carbon Dioxide Level 23 mmol/L (21-32) Anion Gap 11 (6-14) Blood Urea Nitrogen 15 mg/dL (8-26) Creatinine 0.9 mg/dL (0.7-1.3) Estimated GFR (Cockcroft-Gault) 92.1 Glucose Level 115 mg/dL (70-99) Calcium Level 7.8 mg/dL (8.5-10.1) Vancomycin Level Trough 6.7 mcg/mL (10.0-20.0) Vancomycin Last Dose Date Vancomycin Last Dose Time Laboratory Tests Test 04/29/21 22:30 Vancomycin Level Trough 6.7 mcg/mL (10.0-20.0) Vancomycin Last Dose Date Vancomycin Last Dose Time Assessment Assessment Nonoperative treatment of puncture wounds on foot reported to be a snakebite Plan Plan of Care While he does not have findings of compartment syndrome, and had a lot of improvement from the day before yesterday to yesterday's evaluation, between yesterday and today he really has not had any significant change and he has continued pain swelling of the foot and I would favor getting an MRI to check for possible abscess development Justicifation of Admission Dx: Justifications for Admission: Justification of Admission Dx: N/A MAN GUAMAN MD Apr 30, 2021 07:08
[2021-04-30 07:53] LABS: BASO % 1 % (0-3); EOS # 0.3 x10^3/uL (0.0-0.7); EOS % 3 % (0-3); HEMATOCRIT 40.9 % (39.0-53.0); HEMOGLOBIN 14.1 g/dL (13.0-17.5); LYMPH # 2.6 x10^3/uL (1.0-4.8); LYMPH % 31 % (24-48); MEAN CORPUSCULAR HEMOGLOBIN 30 pg (25-35); MEAN CORPUSCULAR HGB CONC 35 g/dL (31-37); MEAN CORPUSCULAR VOLUME 87 fL (79-100); MONO # 0.9 x10^3/uL (0.0-1.1); MONO % 10 % (0-9); NEUT # 4.6 x10^3/uL (1.8-7.7); NEUT % 55 % (31-73); PLATELET COUNT 252 x10^3/uL (140-400); RED BLOOD COUNT 4.71 x10^6/uL (4.30-5.70); RED CELL DISTRIBUTION WIDTH 13.4 % (11.5-14.5); WHITE BLOOD COUNT 8.4 x10^3/uL (4.0-11.0)
[2021-04-30 08:07] LABS: CALCIUM 7.6 mg/dL (8.5-10.1); CREATININE 0.9 mg/dL (0.7-1.3); GFR 92.1; POTASSIUM 4.1 mmol/L (3.5-5.1)
--- NOTE | 2021-04-30 09:40 | NUR ---
SW following. Discussed with RN, [place], regular diet. Pt is not cooperating with [facility]. Some discussion about an MRI of the foot. SW will continue to follow.
[2021-04-30 11:00] VITALS: BP 100/78
[2021-04-30] MEDS: LACTOBACILLUS RHAMNOSUS GG 1 CAPSULE. PO SCH ×2 (12:00→21:15)
--- NOTE | 2021-04-30 12:03 | PDOC ---
[employer] PROGRESS NOTE Date of Service DOS: DATE: 04/30/21 TIME: 12:00 Chief Complaint Chief Complaint A/P: Snake bite -after discussion with ED physician LFTs coagulations studies within normal limits no antivenom given. Will monitor and give supportive care. q 8 hour coag studies completed. No significant neurologic sequela. Extremity elevated. Rattlesnake and cottonmouth are in the region, but it is unclear what snake this was. He has spent greater than 12 hours since the bite site, so indicated continue to observe for an additional 12 hours Cellulitis right lower leg -vancomycin and Zosyn. Elevate extremity. Orthopedic surgery consulted for concern for swelling no evidence of compartment syndrome at this time. Neurovascularly intact Smoker -patient continues to leave the hospital I advised him this would be leaving his medical advice. Offered nicotine gum he is amenable to this. 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 He knows he has previously been given "medications" for this in [place] and notes his daughter has been psychiatrically institutionalized previously but he denies this. He has taken Klonopin for anxiety previously FEN - General diet PPX - lovenox FULL CODE Dispo - inpatient History of Present Illness History of Present Illness Mr Hilliard 45 yo M with no significant past medical history presenting after having a snakebite or puncture wound in his right foot on 04/27/2020 in the evening. Around 2300 contacted EMS, was given morphine in transit and brought to [facility] and states he was discharged around 0300 on antibiotics. He was not given antivenom. Since then his worsening pain and swelling of the foot. He denies any erythema. He has no information about the identity of the snake or even if it was a snake. He lives in a van by [facility] and knows that her snakes there. Pain is 10/10, and he is skeptical about pain medication. He notes he has had swelling since this occurred. He denies numbness weakness or tingling of the extremity. He notes 2 puncture wounds there approximately 8 to 9 cm apart on the medial aspect of the arch of his foot. No fevers or chills. PT 12.9, INR 1, PTT 30, fibrinogen 342, metabolic panel within normal limits WBC 18.5, Hb 16, platelets 357. Admitted for Further care. 04/29: Afebrile. Redness about the same. Pain about the same. No numbness or tingling no necrosis. Elevated D-dimer. He is refusing Lovenox which was ordered after coagulation studies return normal. negative venous doppler today. Afebrile. WBC normalized. Still with a lot of pain and swelling minimally better today. Plan for MRI per Ortho given exquisite ankle tenderness. Vitals/I&O Vitals/I&O: Vital Signs Date Time Temp Pulse Resp B/P (MAP) Pulse Ox O2 Delivery O2 Flow Rate FiO2 04/30/21 11:00 98.4 69 16 100/78 (85) 95 Room Air 98.4 I & O 04/29/21 04/29/21 04/30/21 15:00 23:00 07:00 Intake Total 240 ml 1240 ml Output Total 1000 ml Balance 240 ml 240 ml Physical Exam General: Alert, Oriented X3, Cooperative, moderate distress Extremities: No clubbing, No cyanosis, Normal pulses, Other (Right calf and ankle swelling) Skin: No rashes, No breakdown, No significant lesion Labs Labs: Laboratory Tests Test 04/29/21 22:30 04/30/21 07:00 04/30/21 07:05 Vancomycin Level Trough 6.7 mcg/mL (10.0-20.0) Vancomycin Last Dose Date Vancomycin Last Dose Time White Blood Count 8.4 x10^3/uL (4.0-11.0) Red Blood Count 4.71 x10^6/uL (4.30-5.70) Hemoglobin 14.1 g/dL (13.0-17.5) Hematocrit 40.9 % (39.0-53.0) Mean Corpuscular Volume 87 fL (79-100) Mean Corpuscular Hemoglobin 30 pg (25-35) Mean Corpuscular Hemoglobin Concent 35 g/dL (31-37) Red Cell Distribution Width 13.4 % (11.5-14.5) Platelet Count 252 x10^3/uL (140-400) Neutrophils (%) (Auto) 55 % (31-73) Lymphocytes (%) (Auto) 31 % (24-48) Monocytes (%) (Auto) 10 % (0-9) Eosinophils (%) (Auto) 3 % (0-3) Basophils (%) (Auto) 1 % (0-3) Neutrophils # (Auto) 4.6 x10^3/uL (1.8-7.7) Lymphocytes # (Auto) 2.6 x10^3/uL (1.0-4.8) Monocytes # (Auto) 0.9 x10^3/uL (0.0-1.1) Eosinophils # (Auto) 0.3 x10^3/uL (0.0-0.7) Basophils # (Auto) 0.0 x10^3/uL (0.0-0.2) Sodium Level 143 mmol/L (136-145) Potassium Level 4.1 mmol/L (3.5-5.1) Chloride Level 108 mmol/L (98-107) Carbon Dioxide Level 28 mmol/L (21-32) Anion Gap 7 (6-14) Blood Urea Nitrogen 12 mg/dL (8-26) Creatinine 0.9 mg/dL (0.7-1.3) Estimated GFR (Cockcroft-Gault) 92.1 Glucose Level 99 mg/dL (70-99) Calcium Level 7.6 mg/dL (8.5-10.1) Assessment and Plan Assessmemt and Plan Problems Medical Problems: (1) Leg pain Status: Acute (2) Snake bite Status: Acute (3) Snake bite poisoning Status: Acute Comment Review of Relevant I have reviewed the following items althea (where applicable) has been applied. Medications: Current Medications Medications (Trade) Dose Ordered Sig/Leon Route PRN Reason Start Time Stop Time Status Last Admin Dose Admin Vancomycin HCl (Vancomycin Trough Level) 1 each 1X ONCE 04/29/21 22:30 04/29/21 22:31 DC 04/29/21 22:30 Vancomycin HCl 1 gm/Sodium Chloride 250 ml @ 250 mls/hr Q8H IV 04/29/21 23:30 04/30/21 06:13 Justifications for Admission Other Justification ARELIS KINGSTON MD Apr 30, 2021 12:03
[2021-04-30 15:00] VITALS: BP 103/68
[2021-04-30] MEDS ORDERED: GADOTERATE 7.5 MMOL/15ML VIAL. IVP ONE ×2 (17:15→20:45)
[2021-04-30] MEDS: NICOTINE POLACRILEX 2MG GUM PACKAGE of 12. BC PRN ×3 (17:43→22:58)
--- NOTE | 2021-04-30 17:49 | NUR ---
Patient is starting to wake up more and be more alert today. He refused pain meds all day until roughly 1545 he decided he wanted to take some tylenol for his RLE pain but does not want anything stronger. Then around 1730 he stated "I am leaving because I need a cigerette". This nurse and the charge nurse went in to educate patient about the facility policies with smoking and also about leaving AMA. He then stated he would stay but "wanted Nicorette gum now" and he then refused nicotine patches because he states he is allergic to them and it makes him itch. Dr Ritchie aware/notified. Patient now sitting in his bed snacking on some food at his bedside. MRI to be completed soon per diesel technician mechanic. Will continue to monitor.
[2021-04-30 19:30] VITALS: BP 117/73
[2021-04-30] MEDS: PSYLLIUM HUSK (SUGAR FREE) 1 PKT PACKET PO SCH (21:00)
[2021-04-30] MEDS: ENOXAPARIN 40 MG/0.4 ML SYRINGE. SQ SCH (21:15)
--- NOTE | 2021-04-30 21:20 | NUR ---
Patient back to unit from MRI. Clariscan scheduled for 2044 non-administered on eMAR as medication for MRI use only. Patient in bed resting, bed in lowest/locked position, and no other needs voiced at this time.
[2021-04-30 23:21] LABS: VANC TR 10.9 mcg/mL (10.0-20.0)
[2021-04-30 23:22] VITALS: BP 105/61
[2021-05-01] MEDS: VANCOMYCIN PER PHARMACY MC PRN (00:33)
--- NOTE | 2021-05-01 00:34 | NUR ---
Pharmacy Vancomycin Dosing Note S:Consulted to monitor and dose vancomycin started 04/28/21. O:TED WHITTAKER is a 45 year old M with Cellulitis . Height: 5 feet, 10 inches Weight: 73.813397 kg [place] Body Weight: 66.10 Adjusted Body Weight: 69.22 Dosing Weight: Actual Other Antibiotics: ZOSYN LABS: Last BUN: 12 Last Creatinine: 0.9 Creatinine Clearance: >100 mL/min Last WBC: 8.4 Last Procalcitonin: Tmax (past 24 hours): 98.7 Microbiology: - I/O: 2770/0 Drug Levels: Last Trough level: 10.9 on 04/30/21 at 2300 Last dose given 04/30/21 at 1550 Vancomycin Dosing: Loading Dose: 1750 mg x1 Dosing Weight: Actual Target Trough: 10-20 A: Based on: THERAPEUTIC TROUGH FOR INDICATION, P: 1. CONTINUE Vancomycin 1000 mg IV q8h 2. Follow up Trough level NEEDED. 3. Pharmacy will continue to monitor, follow and adjust therapy as needed. TRACE MACE [facility], 05/01/21 0034
[2021-05-01] MEDS: PIPERACILLIN/TAZOBACTAM 3.375 GM in IV NORMAL SALINE 50ML 50 ML IV SCH ×2 (00:57→06:11)
[2021-05-01 03:12] VITALS: BP 102/66
[2021-05-01 07:00] VITALS: BP 110/74
[2021-05-01 07:04] LABS: BASO % 1 % (0-3); EOS # 0.4 x10^3/uL (0.0-0.7); EOS % 5 % (0-3); HEMATOCRIT 39.9 % (39.0-53.0); HEMOGLOBIN 13.6 g/dL (13.0-17.5); LYMPH # 2.8 x10^3/uL (1.0-4.8); LYMPH % 38 % (24-48); MEAN CORPUSCULAR HEMOGLOBIN 30 pg (25-35); MEAN CORPUSCULAR HGB CONC 34 g/dL (31-37); MEAN CORPUSCULAR VOLUME 88 fL (79-100); MONO # 0.7 x10^3/uL (0.0-1.1); MONO % 9 % (0-9); NEUT # 3.5 x10^3/uL (1.8-7.7); NEUT % 47 % (31-73); PLATELET COUNT 248 x10^3/uL (140-400); RED BLOOD COUNT 4.56 x10^6/uL (4.30-5.70); WHITE BLOOD COUNT 7.4 x10^3/uL (4.0-11.0)
[2021-05-01 07:20] LABS: CALCIUM 7.8 mg/dL (8.5-10.1); CREATININE 0.7 mg/dL (0.7-1.3); GFR 123.1; POTASSIUM 3.9 mmol/L (3.5-5.1)
[2021-05-01] MEDS: VANCOMYCIN 1 GM in IV NORMAL SALINE 250ML 250 ML IV SCH (07:27)
[2021-05-01] MEDS: LACTOBACILLUS RHAMNOSUS GG 1 CAPSULE. PO SCH (08:40)
--- NOTE | 2021-05-01 10:44 | RAD ---
MRI right foot without and with contrast HISTORY: Right foot swelling, infection. Snake bite of the right foot. Abscess. COMPARISON: Right foot x-rays April 28, 2021. Contrast: 14 mL clariscan gadolinium intravenous contrast. FINDINGS: No evidence of osteomyelitis with no abnormal bone edema or replacement of the fatty marrow signal, cortical defect or periostitis. No fracture. Mild foci of reactivated red marrow at the hind foot. There is diffuse ankle and dorsal midfoot and forefoot expansile soft tissue edema and enhancement li sravanthi cellulitis. At the lateral ankle, lateral hindfoot, lateral midfoot and dorsolateral forefoot ov erlying the tibial plafond, talus, lateral malleolus, midfoot and forefoot there is subcutaneous area s of peripheral irregular contrast enhancement with absent internal enhancement, surrounded by the en hancing phlegmonous edema, best demonstrated on coronal T2-weighted and T1-weighted postcontrast imag es 1-20, as well as on sagittal images 19-23 and axial images 1-17 which is concerning for extensive organizing abscess surrounded by phlegmonous edema at the midfoot and forefoot this measures 5 x 1 cm in diameter. This could extend to the ankle outside the [id number]. Tendons intact. Angles are unremarkable. IMPRESSION: 1. Cellulitis with expansile phlegmonous edema and enhancement of the subcutaneous tissues along the dorsal foot and circumferentially about the ankle. Along the dorsolateral forefoot and along the late ral aspect of the midfoot, hindfoot and ankle there is an extensive subcutaneous irregular peripheral enhancing fluid collection surrounded by the edema concerning for organizing abscess. See above. 2. No evidence of osteomyelitis. Electronically signed by: Mick Landin MD (05/01/2021 10:42 AM) [id number]
[2021-05-01] MEDS ORDERED: SULF1TAB24 PO (10:48)
[2021-05-01] MEDS ORDERED: CEFU500T46 PO (10:48)
--- NOTE | 2021-05-01 10:53 | PDOC ---
[employer] PROGRESS NOTE Date of Service DOS: DATE: 05/01/21 TIME: 10:52 Chief Complaint Chief Complaint A/P: Snake bite -after discussion with ED physician LFTs coagulations studies within normal limits no antivenom given. Will monitor and give supportive care. q 8 hour coag studies completed. No significant neurologic sequela. Extremity elevated. Rattlesnake and cottonmouth are in the region, but it is unclear what snake this was. He has spent greater than 12 hours since the bite site, so indicated continue to observe for an additional 12 hours Cellulitis right lower leg -vancomycin and Zosyn. Elevate extremity. Orthopedic surgery consulted for concern for swelling no evidence of compartment syndrome at this time. Neurovascularly intact Smoker -patient continues to leave the hospital I advised him this would be leaving his medical advice. Offered nicotine gum he is amenable to this. 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 He knows he has previously been given "medications" for this in [place] and notes his daughter has been psychiatrically institutionalized previously but he denies this. He has taken Klonopin for anxiety previously FEN - General diet PPX - lovenox FULL CODE Dispo - inpatient History of Present Illness History of Present Illness Mr Hilliard 45 yo M with no significant past medical history presenting after having a snakebite or puncture wound in his right foot on 04/27/2020 in the evening. Around 2300 contacted EMS, was given morphine in transit and brought to [facility] and states he was discharged around 0300 on antibiotics. He was not given antivenom. Since then his worsening pain and swelling of the foot. He denies any erythema. He has no information about the identity of the snake or even if it was a snake. He lives in a van by [facility] and knows that her snakes there. Pain is 10/10, and he is skeptical about pain medication. He notes he has had swelling since this occurred. He denies numbness weakness or tingling of the extremity. He notes 2 puncture wounds there approximately 8 to 9 cm apart on the medial aspect of the arch of his foot. No fevers or chills. PT 12.9, INR 1, PTT 30, fibrinogen 342, metabolic panel within normal limits WBC 18.5, Hb 16, platelets 357. Admitted for Further care. 04/29: Afebrile. Redness about the same. Pain about the same. No numbness or tingling no necrosis. Elevated D-dimer. He is refusing Lovenox which was ordered after coagulation studies return normal. negative venous doppler today. 04/30: Afebrile. WBC normalized. Still with a lot of pain and swelling minimally better today. Plan for MRI per Ortho given exquisite ankle tenderness. Afebrile. WBC normalized. Vancomycin trough increased greater than 10. Swelling improved pain improved. MRI without formal read no discrete abscess or bony abnormalities noted. Changed to oral Ceftin Bactrim DS for 10 days. Instructions for follow-up. He has been going outside to check on his van and smoke, advised him this is not safe. Vitals/I&O Vitals/I&O: Vital Signs Date Time Temp Pulse Resp B/P (MAP) Pulse Ox O2 Delivery O2 Flow Rate FiO2 05/01/21 07:55 Room Air 05/01/21 07:00 98.2 66 18 110/74 (86) 99 98.2 I & O 0 04/30/21 04/30/21 05/01/21 15:00 23:00 07:00 Intake Total 930 ml 830 ml Output Total 550 ml Balance 930 ml 280 ml Physical Exam General: Alert, Oriented X3, Cooperative, moderate distress Extremities: No clubbing, No cyanosis, Normal pulses, Other (Right calf and ankle swelling) Skin: No rashes, No breakdown, No significant lesion Labs Labs: Laboratory Tests Test 04/30/21 23:00 05/01/21 05:40 Vancomycin Level Trough 10.9 mcg/mL (10.0-20.0) Vancomycin Last Dose Date 04/30/21 Vancomycin Last Dose Time 1530 White Blood Count 7.4 x10^3/uL (4.0-11.0) Red Blood Count 4.56 x10^6/uL (4.30-5.70) Hemoglobin 13.6 g/dL (13.0-17.5) Hematocrit 39.9 % (39.0-53.0) Mean Corpuscular Volume 88 fL (79-100) Mean Corpuscular Hemoglobin 30 pg (25-35) Mean Corpuscular Hemoglobin Concent 34 g/dL (31-37) Red Cell Distribution Width 13.0 % (11.5-14.5) Platelet Count 248 x10^3/uL (140-400) Neutrophils (%) (Auto) 47 % (31-73) Lymphocytes (%) (Auto) 38 % (24-48) Monocytes (%) (Auto) 9 % (0-9) Eosinophils (%) (Auto) 5 % (0-3) Basophils (%) (Auto) 1 % (0-3) Neutrophils # (Auto) 3.5 x10^3/uL (1.8-7.7) Lymphocytes # (Auto) 2.8 x10^3/uL (1.0-4.8) Monocytes # (Auto) 0.7 x10^3/uL (0.0-1.1) Eosinophils # (Auto) 0.4 x10^3/uL (0.0-0.7) Basophils # (Auto) 0.0 x10^3/uL (0.0-0.2) Sodium Level 143 mmol/L (136-145) Potassium Level 3.9 mmol/L (3.5-5.1) Chloride Level 108 mmol/L (98-107) Carbon Dioxide Level 28 mmol/L (21-32) Anion Gap 7 (6-14) Blood Urea Nitrogen 10 mg/dL (8-26) Creatinine 0.7 mg/dL (0.7-1.3) Estimated GFR (Cockcroft-Gault) 123.1 Glucose Level 96 mg/dL (70-99) Calcium Level 7.8 mg/dL (8.5-10.1) Assessment and Plan Assessmemt and Plan Problems Medical Problems: (1) Leg pain Status: Acute (2) Snake bite Status: Acute (3) Snake bite poisoning Status: Acute Comment Review of Relevant I have reviewed the following items althea (where applicable) has been applied. Medications: Current Medications Medications (Trade) Dose Ordered Sig/Leon Route PRN Reason Start Time Stop Time Status Last Admin Dose Admin Vancomycin HCl (Vancomycin Trough Level) 1 each 1X ONCE MC 04/30/21 23:00 04/30/21 23:01 DC 04/30/21 23:00 Lactobacillus Rhamnosus (Culturelle) 1 cap BID PO 04/30/21 12:00 05/01/21 08:40 Gadoterate Meglumine (Clariscan) 14 ml 1X ONCE IVP 04/30/21 17:15 04/30/21 17:16 DC 04/30/21 20:42 Justifications for Admission Other Justification ARELIS KINGSTON MD May 01, 2021 10:53
[2021-05-01 11:00] VITALS: BP 120/86
--- NOTE | 2021-05-01 11:06 | PDOC3 ---
Discharge Summary Visit Information Date of Admission: Apr 28, 2021 Date of Discharge: May 01, 2021 Admitting Diagnosis: Right ankle pain, snake bit Final Diagnosis Problems Medical Problems: (1) Leg pain Status: Acute (2) Snake bite Status: Acute (3) Snake bite poisoning Status: Acute Brief Hospital Course Allergies Allergies Coded Allergies Type Severity Reaction Last Updated Verified No Known Drug Allergies 04/28/21 No Vital Signs Vital Signs Date Time Temp Pulse Resp B/P (MAP) Pulse Ox O2 Delivery O2 Flow Rate FiO2 05/01/21 07:55 Room Air 05/01/21 07:00 98.2 66 18 110/74 (86) 99 98.2 Lab Results Laboratory Tests Test 04/29/21 22:30 04/30/21 07:00 04/30/21 07:05 04/30/21 23:00 Vancomycin Level Trough 6.7 mcg/mL (10.0-20.0) 10.9 mcg/mL (10.0-20.0) Vancomycin Last Dose Date 04/30/21 Vancomycin Last Dose Time 1530 White Blood Count 8.4 x10^3/uL (4.0-11.0) Red Blood Count 4.71 x10^6/uL (4.30-5.70) Hemoglobin 14.1 g/dL (13.0-17.5) Hematocrit 40.9 % (39.0-53.0) Mean Corpuscular Volume 87 fL (79-100) Mean Corpuscular Hemoglobin 30 pg (25-35) Mean Corpuscular Hemoglobin Concent 35 g/dL (31-37) Red Cell Distribution Width 13.4 % (11.5-14.5) Platelet Count 252 x10^3/uL (140-400) Neutrophils (%) (Auto) 55 % (31-73) Lymphocytes (%) (Auto) 31 % (24-48) Monocytes (%) (Auto) 10 % (0-9) Eosinophils (%) (Auto) 3 % (0-3) Basophils (%) (Auto) 1 % (0-3) Neutrophils # (Auto) 4.6 x10^3/uL (1.8-7.7) Lymphocytes # (Auto) 2.6 x10^3/uL (1.0-4.8) Monocytes # (Auto) 0.9 x10^3/uL (0.0-1.1) Eosinophils # (Auto) 0.3 x10^3/uL (0.0-0.7) Basophils # (Auto) 0.0 x10^3/uL (0.0-0.2) Sodium Level 143 mmol/L (136-145) Potassium Level 4.1 mmol/L (3.5-5.1) Chloride Level 108 mmol/L (98-107) Carbon Dioxide Level 28 mmol/L (21-32) Anion Gap 7 (6-14) Blood Urea Nitrogen 12 mg/dL (8-26) Creatinine 0.9 mg/dL (0.7-1.3) Estimated GFR (Cockcroft-Gault) 92.1 Glucose Level 99 mg/dL (70-99) Calcium Level 7.6 mg/dL (8.5-10.1) Test 05/01/21 05:40 White Blood Count 7.4 x10^3/uL (4.0-11.0) Red Blood Count 4.56 x10^6/uL (4.30-5.70) Hemoglobin 13.6 g/dL (13.0-17.5) Hematocrit 39.9 % (39.0-53.0) Mean Corpuscular Volume 88 fL (79-100) Mean Corpuscular Hemoglobin 30 pg (25-35) Mean Corpuscular Hemoglobin Concent 34 g/dL (31-37) Red Cell Distribution Width 13.0 % (11.5-14.5) Platelet Count 248 x10^3/uL (140-400) Neutrophils (%) (Auto) 47 % (31-73) Lymphocytes (%) (Auto) 38 % (24-48) Monocytes (%) (Auto) 9 % (0-9) Eosinophils (%) (Auto) 5 % (0-3) Basophils (%) (Auto) 1 % (0-3) Neutrophils # (Auto) 3.5 x10^3/uL (1.8-7.7) Lymphocytes # (Auto) 2.8 x10^3/uL (1.0-4.8) Monocytes # (Auto) 0.7 x10^3/uL (0.0-1.1) Eosinophils # (Auto) 0.4 x10^3/uL (0.0-0.7) Basophils # (Auto) 0.0 x10^3/uL (0.0-0.2) Sodium Level 143 mmol/L (136-145) Potassium Level 3.9 mmol/L (3.5-5.1) Chloride Level 108 mmol/L (98-107) Carbon Dioxide Level 28 mmol/L (21-32) Anion Gap 7 (6-14) Blood Urea Nitrogen 10 mg/dL (8-26) Creatinine 0.7 mg/dL (0.7-1.3) Estimated GFR (Cockcroft-Gault) 123.1 Glucose Level 96 mg/dL (70-99) Calcium Level 7.8 mg/dL (8.5-10.1) Laboratory Tests Test 04/30/21 23:00 05/01/21 05:40 Vancomycin Level Trough 10.9 mcg/mL (10.0-20.0) Vancomycin Last Dose Date 04/30/21 Vancomycin Last Dose Time 1530 White Blood Count 7.4 x10^3/uL (4.0-11.0) Red Blood Count 4.56 x10^6/uL (4.30-5.70) Hemoglobin 13.6 g/dL (13.0-17.5) Hematocrit 39.9 % (39.0-53.0) Mean Corpuscular Volume 88 fL (79-100) Mean Corpuscular Hemoglobin 30 pg (25-35) Mean Corpuscular Hemoglobin Concent 34 g/dL (31-37) Red Cell Distribution Width 13.0 % (11.5-14.5) Platelet Count 248 x10^3/uL (140-400) Neutrophils (%) (Auto) 47 % (31-73) Lymphocytes (%) (Auto) 38 % (24-48) Monocytes (%) (Auto) 9 % (0-9) Eosinophils (%) (Auto) 5 % (0-3) Basophils (%) (Auto) 1 % (0-3) Neutrophils # (Auto) 3.5 x10^3/uL (1.8-7.7) Lymphocytes # (Auto) 2.8 x10^3/uL (1.0-4.8) Monocytes # (Auto) 0.7 x10^3/uL (0.0-1.1) Eosinophils # (Auto) 0.4 x10^3/uL (0.0-0.7) Basophils # (Auto) 0.0 x10^3/uL (0.0-0.2) Sodium Level 143 mmol/L (136-145) Potassium Level 3.9 mmol/L (3.5-5.1) Chloride Level 108 mmol/L (98-107) Carbon Dioxide Level 28 mmol/L (21-32) Anion Gap 7 (6-14) Blood Urea Nitrogen 10 mg/dL (8-26) Creatinine 0.7 mg/dL (0.7-1.3) Estimated GFR (Cockcroft-Gault) 123.1 Glucose Level 96 mg/dL (70-99) Calcium Level 7.8 mg/dL (8.5-10.1) Brief Hospital Course Mr Hilliard 45 yo M with no significant past medical history presenting after having a snakebite or puncture wound in his right foot on 04/27/2020 in the evening. Around 2300 contacted EMS, was given morphine in transit and brought to [facility] and states he was discharged around 0300 on antibiotics. He was not given antivenom. Since then his worsening pain and swelling of the foot. He denies any erythema. He has no information about the identity of the snake or even if it was a sn flor. He lives in a van by [facility] and knows that her snakes there. Pain is 10/10, and he is skeptical about pain medication. He notes he has had swelling since this occurred. He denies numbness weakness or tingling of the extremity. He notes 2 puncture wounds there approximately 8 to 9 cm apart on the medial aspect of the arch of his foot. No fevers or chills. PT 12.9, INR 1, PTT 30, fibrinogen 342, metabolic panel within normal limits WBC 18.5, Hb 16, platelets 357. Admitted for Further care. 04/29: Afebrile. Redness about the same. Pain about the same. No numbness or tingling no necrosis. Elevated D-dimer. He is refusing Lovenox which was ordered after coagulation studies return normal. negative venous doppler today. 04/30: Afebrile. WBC normalized. Still with a lot of pain and swelling minimally better today. Plan for MRI per Ortho given exquisite ankle tenderness . Afebrile. WBC normalized. Vancomycin trough increased greater than 10. Swelling improved pain improved. MRI without formal read d/w ortho no sign of bone infection, significant subcutaneous edema noted. Changed to oral Ceftin Bactrim DS for 10 days. Instructions for follow-up. He has been going outside to check on his van and smoke, advised him this is not safe. Problem list: Snake bite -after discussion with ED physician LFTs coagulations studies within normal limits no antivenom given. Will monitor and give supportive care. q 8 hour coag studies completed. No significant neurologic sequela. Extremity elevated. Trinosnaangel and darryl are in the region, but it is unclear what snake this was. He has spent greater than 12 hours since the bite site, so indicated continue to observe for an additional 12 hours Cellulitis right lower leg -vancomycin and Zosyn. Elevate extremity. Orthopedic surgery consulted for concern for swelling no evidence of compartment syndrome at this time. Neurovascularly intact Smoker -patient continues to leave the hospital I advised him this would be leaving his medical advice. Offered nicotine gum he is amenable to this. 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 He knows he has previously been given "medications" for this in [place] and notes his daughter has been psychiatrically institutionalized pre viously but he denies this. He has taken Klonopin for anxiety previously Consults: Orthopedic surgery Greater than 30 minutes spent on d/c Follow up: [place] [id number] [facility] [place] [address] [facility] [address] [place] [address] [facility] [address] [place] [address] Call if symptoms worsen [facility] [address] [facility] [place] [address] Discharge Information Condition at Discharge: Improved Follow Up: Weeks (1) Disposition/Orders: D/C to Home Scheduled Cefuroxime Axetil (Cefuroxime) 500 Mg Tablet, 1 TAB PO BID for Cellulitis for 10 Days, #20 Ref 0 Prescribed by: ARELIS KINGSTON MD on 05/01/21 1048 Info (No Known Medications Prior To Admisstion) Each, 1 EACH 1X for none, (Reported) Entered as Reported by: RAIZA RODRIGUEZ on 04/28/211309 Last Action: New Order on 04/28/211309 by RAIZA RODRIGUEZ Sulfamethoxazole/Trimethoprim (Bactrim Ds Tablet) 1 Each Tablet, 1 TAB PO BID for Cellulitis for 10 Days, #20 Ref 0 Prescribed by: ARELIS KINGSTON MD on 05/01/21 1048 Justicifation of Admission Dx: Justifications for Admission: Justification of Admission Dx: N/A ARELIS KINGSTON MD May 01, 2021 11:06
--- NOTE | 2021-05-01 11:33 | NUR ---
Patient discharged home today with self care via wheelchair, accompanied by this RN. Patient is stable, IV removed, prescriptions, and discharge paperwork given to patient. Patient verbalized understand of follow up and discharge instruction.
--- NOTE | 2021-05-01 17:53 | PDOC ---
PROGRESS NOTES Date of Service DATE: 05/01/21 TIME: 17:45 Subjective Subjective Problems overnight: Delayed entry, saw him at about 8 AM this morning, he notes improvement in the right foot and leg and is bearing weight, reportedly he had gone outside against policy to smoke later in the morning Objective Vital Signs Vital Signs Date Time Temp Pulse Resp B/P (MAP) Pulse Ox O2 Delivery O2 Flow Rate FiO2 05/01/21 11:00 98.0 90 18 120/86 (97) 98 Room Air 98.0 Physical Exam On examination calf tenderness has resolved, remains diffusely tender over the right foot but he can fully plantar and dorsiflex the foot without pain with either passive or active motion no fluctuance is noted about the foot nor is any redness observed currently, notably nothing around the "snakebite" puncture areas Labs Laboratory Tests Test 04/29/21 22:30 04/30/21 07:00 04/30/21 07:05 04/30/21 23:00 Vancomycin Level Trough 6.7 mcg/mL (10.0-20.0) 10.9 mcg/mL (10.0-20.0) Vancomycin Last Dose Date 04/30/21 Vancomycin Last Dose Time 1530 White Blood Count 8.4 x10^3/uL (4.0-11.0) Red Blood Count 4.71 x10^6/uL (4.30-5.70) Hemoglobin 14.1 g/dL (13.0-17.5) Hematocrit 40.9 % (39.0-53.0) Mean Corpuscular Volume 87 fL (79-100) Mean Corpuscular Hemoglobin 30 pg (25-35) Mean Corpuscular Hemoglobin Concent 35 g/dL (31-37) Red Cell Distribution Width 13.4 % (11.5-14.5) Platelet Count 252 x10^3/uL (140-400) Neutrophils (%) (Auto) 55 % (31-73) Lymphocytes (%) (Auto) 31 % (24-48) Monocytes (%) (Auto) 10 % (0-9) Eosinophils (%) (Auto) 3 % (0-3) Basophils (%) (Auto) 1 % (0-3) Neutrophils # (Auto) 4.6 x10^3/uL (1.8-7.7) Lymphocytes # (Auto) 2.6 x10^3/uL (1.0-4.8) Monocytes # (Auto) 0.9 x10^3/uL (0.0-1.1) Eosinophils # (Auto) 0.3 x10^3/uL (0.0-0.7) Basophils # (Auto) 0.0 x10^3/uL (0.0-0.2) Sodium Level 143 mmol/L (136-145) Potassium Level 4.1 mmol/L (3.5-5.1) Chloride Level 108 mmol/L (98-107) Carbon Dioxide Level 28 mmol/L (21-32) Anion Gap 7 (6-14) Blood Urea Nitrogen 12 mg/dL (8-26) Creatinine 0.9 mg/dL (0.7-1.3) Estimated GFR (Cockcroft-Gault) 92.1 Glucose Level 99 mg/dL (70-99) Calcium Level 7.6 mg/dL (8.5-10.1) Test 05/01/21 05:40 White Blood Count 7.4 x10^3/uL (4.0-11.0) Red Blood Count 4.56 x10^6/uL (4.30-5.70) Hemoglobin 13.6 g/dL (13.0-17.5) Hematocrit 39.9 % (39.0-53.0) Mean Corpuscular Volume 88 fL (79-100) Mean Corpuscular Hemoglobin 30 pg (25-35) Mean Corpuscular Hemoglobin Concent 34 g/dL (31-37) Red Cell Distribution Width 13.0 % (11.5-14.5) Platelet Count 248 x10^3/uL (140-400) Neutrophils (%) (Auto) 47 % (31-73) Lymphocytes (%) (Auto) 38 % (24-48) Monocytes (%) (Auto) 9 % (0-9) Eosinophils (%) (Auto) 5 % (0-3) Basophils (%) (Auto) 1 % (0-3) Neutrophils # (Auto) 3.5 x10^3/uL (1.8-7.7) Lymphocytes # (Auto) 2.8 x10^3/uL (1.0-4.8) Monocytes # (Auto) 0.7 x10^3/uL (0.0-1.1) Eosinophils # (Auto) 0.4 x10^3/uL (0.0-0.7) Basophils # (Auto) 0.0 x10^3/uL (0.0-0.2) Sodium Level 143 mmol/L (136-145) Potassium Level 3.9 mmol/L (3.5-5.1) Chloride Level 108 mmol/L (98-107) Carbon Dioxide Level 28 mmol/L (21-32) Anion Gap 7 (6-14) Blood Urea Nitrogen 10 mg/dL (8-26) Creatinine 0.7 mg/dL (0.7-1.3) Estimated GFR (Cockcroft-Gault) 123.1 Glucose Level 96 mg/dL (70-99) Calcium Level 7.8 mg/dL (8.5-10.1) Laboratory Tests Test 04/30/21 23:00 05/01/21 05:40 Vancomycin Level Trough 10.9 mcg/mL (10.0-20.0) Vancomycin Last Dose Date 04/30/21 Vancomycin Last Dose Time 1530 White Blood Count 7.4 x10^3/uL (4.0-11.0) Red Blood Count 4.56 x10^6/uL (4.30-5.70) Hemoglobin 13.6 g/dL (13.0-17.5) Hematocrit 39.9 % (39.0-53.0) Mean Corpuscular Volume 88 fL (79-100) Mean Corpuscular Hemoglobin 30 pg (25-35) Mean Corpuscular Hemoglobin Concent 34 g/dL (31-37) Red Cell Distribution Width 13.0 % (11.5-14.5) Platelet Count 248 x10^3/uL (140-400) Neutrophils (%) (Auto) 47 % (31-73) Lymphocytes (%) (Auto) 38 % (24-48) Monocytes (%) (Auto) 9 % (0-9) Eosinophils (%) (Auto) 5 % (0-3) Basophils (%) (Auto) 1 % (0-3) Neutrophils # (Auto) 3.5 x10^3/uL (1.8-7.7) Lymphocytes # (Auto) 2.8 x10^3/uL (1.0-4.8) Monocytes # (Auto) 0.7 x10^3/uL (0.0-1.1) Eosinophils # (Auto) 0.4 x10^3/uL (0.0-0.7) Basophils # (Auto) 0.0 x10^3/uL (0.0-0.2) Sodium Level 143 mmol/L (136-145) Potassium Level 3.9 mmol/L (3.5-5.1) Chloride Level 108 mmol/L (98-107) Carbon Dioxide Level 28 mmol/L (21-32) Anion Gap 7 (6-14) Blood Urea Nitrogen 10 mg/dL (8-26) Creatinine 0.7 mg/dL (0.7-1.3) Estimated GFR (Cockcroft-Gault) 123.1 Glucose Level 96 mg/dL (70-99) Calcium Level 7.8 mg/dL (8.5-10.1) Imaging I had reviewed the MRI this morning in advance of the radiology report and saw no evidence of abscess or fluid collection. He only has diffuse subcutaneous swelling and no changes in the bone or muscular compartments and no tendon sheath involvement Assessment Assessment Nonoperative management right lower extremity swelling and cellulitis reported snakebite Plan Plan of Care Overall he says he is better seems to be getting around reasonably, does not want surgery and based on his improvement I do not think he needs it. Later MRI read did not note an abscess but cited some phlegmon subcutaneous although I really do not see any change in the tissue structure in any specific isolated area. Nevertheless he has been discharged and apparently noncompliant with the facility restrictions on smoking. Follow-up would be as symptomatically needed. He does have significant social issues that were outlined in detail by Dr. Black Justicifation of Admission Dx: Justifications for Admission: Justification of Admission Dx: N/A MAN GUAMAN MD May 01, 2021 17:53
== END 2021-05-01 11:36 | disposition home or self-care (01) | DRG 603 ==
LOC: ER 10:00 → 4 NORTH 11:30
PROVIDERS: ADMIT Internal Medicine; ATTEND Internal Medicine
DX: L03.115 Cellulitis of right lower limb (principal); T63.001A Toxic effect of unspecified snake venom, accidental (unintentional), initial encounter; F17.210 Nicotine dependence, cigarettes, uncomplicated; J45.909 Unspecified asthma, uncomplicated; Y92.89 Other specified places as the place of occurrence of the external cause; Z81.8 Family history of other mental and behavioral disorders; Z82.49 Family history of ischemic heart disease and other diseases of the circulatory system; F41.9 Anxiety disorder, unspecified; S81.831A Puncture wound without foreign body, right lower leg, initial encounter; X58.XXXA Exposure to other specified factors, initial encounter; Y93.89 Activity, other specified; Y99.8 Other external cause status
CPT/HCPCS: 36415; 73590; 73610; 73630; 73718; 80048; 80053; 80202; 82550; 85025; 85027; 85049; 85379; 85384; 85610; 85730; 90471; 90715; 93971; 96365; 96375; A9575; J1650; J2543; J3370; J7030; J7040; J7050; 99285-25; G0378